=== PATIENT | male | born 1940 | race Caucasian/White ===

== ENCOUNTER 2017-04-29 12:07 | Observation (INO) | payer MEDICARE ==
[~2017-04-29] VITALS: Ht 175.3 cm; Wt 101.0 kg
[~2017-04-29 12:07] MED LIST: CEPHALEXIN500 MG PO; CLOPIDOGREL75 MG PO; FLUOXETINE20 MG PO; LO-DOSE ASA81 MG PO; METOPROL TAR25 MG PO; MULTIVITAMIN PO; PRILOSEC20 MG PO; ROBITUSSIN AC10 ML PO; SIMVASTATIN40 MG PO; TESSALON PER100 MG PO; ZPAK PO
[2017-04-29 12:53] LABS: HEMATOCRIT 43.3 % (39.0-50.0); HEMOGLOBIN 14.1 g/dl (14.0-18.0); IMMATURE GRANULOCYTES 0.5 % (0.0-1.0); MEAN CELL VOLUME 94.5 fL CALC (80.0-100.0); MEAN CORPUSCULAR HGB 30.8 pG CALC (26.0-32.0); MEAN CORPUSCULAR HGB CONC 32.6 g/L CALC (32.0-36.0); NEUT# 4.57 thou/uL (1.82-7.42); RED BLOOD COUNT 4.58 mill/uL (4.70-6.10); RED CELL DISTRI WIDTH 13.7 % (11.5-15.5)
[2017-04-29 12:54] LABS: URINE BILIRUBIN - DIPSTICK NEGATIVE (NEGATIVE); URINE BLOOD DIPSTICK NEGATIVE (NEGATIVE); URINE COLOR YELLOW; URINE GLUCOSE - DIPSTICK NEGATIVE (NEGATIVE); URINE KETONE NEGATIVE (NEGATIVE); URINE LEUK ESTERASE NEGATIVE (NEGATIVE); URINE NITRITE - DIPSTICK NEGATIVE (Negative); URINE PROTEIN - DIPSTICK TRACE mg/dL (NEG-TRACE); URINE SPECIFIC GRAVITY 1.025
[2017-04-29 12:56] LABS: URINE CLARITY HAZY
[2017-04-29 13:06] LABS: ANION GAP 17 (6-22 (CALC)); BUN 16 mg/dL (8-23); BUN/CREATININE RATIO 23 (12-20 (CALC)); CALCIUM 9.1 mg/dL (8.4-10.2); CARBON DIOXIDE 24 mmol/l (22-30); CHLORIDE 106 mmol/l (95-108); CREATININE 0.7 mg/dL (0.7-1.3); GFR > 60 ML/MIN (>=60 (CALC)); GFR FOR AFR.AMER. > 60 ML/MIN (>=60 (CALC)); GLUCOSE 109 mg/dL (82-115); POTASSIUM 4.5 mmol/l (3.5-5.1); SODIUM 142 mmol/l (137-146)
[2017-04-29] MEDS ORDERED: METFORMIN500 MG PO (13:49)
[2017-04-29] MEDS ORDERED: B121000 MCG PO (13:51)
[2017-04-29] MEDS ORDERED: PANTOPRAZOLE SO40 MG PO (13:51)
[2017-04-29 14:13] LABS: BARBITURATES NEGATIVE (NEGATIVE); COCAINE NEGATIVE (NEGATIVE); METHADONE NEGATIVE (NEGATIVE); OXCYCODONE NEGATIVE (NEGATIVE); TETRAHYDROCANNABIONOL NEGATIVE (NEGATIVE); TRICYLIC ANTIDEPRESSANTS NEGATIVE (NEGATIVE)
[2017-04-29 15:36] VITALS: BP 146/76
[2017-04-29 16:30] VITALS: BP 140/73; BP 150/70; BP 154/70
[2017-04-29 19:50] VITALS: BP 143/60
[2017-04-29 19:53] VITALS: BP 159/93
[2017-04-29 19:55] VITALS: BP 141/60
[2017-04-29 20:00] VITALS: BP 143/73
[2017-04-30 00:20] VITALS: BP 132/64
[2017-04-30 04:55] VITALS: BP 122/76
[2017-04-30 05:17] LABS: HEMATOCRIT 41.1 % (39.0-50.0); HEMOGLOBIN 13.2 g/dl (14.0-18.0); MEAN CELL VOLUME 94.7 fL CALC (80.0-100.0); MEAN CORPUSCULAR HGB 30.4 pG CALC (26.0-32.0); MEAN CORPUSCULAR HGB CONC 32.1 g/L CALC (32.0-36.0); RED BLOOD COUNT 4.34 mill/uL (4.70-6.10); RED CELL DISTRI WIDTH 13.4 % (11.5-15.5)
[2017-04-30 05:30] LABS: ANION GAP 15 (6-22 (CALC)); BUN 13 mg/dL (8-23); BUN/CREATININE RATIO 18 (12-20 (CALC)); CALCIUM 8.9 mg/dL (8.4-10.2); CARBON DIOXIDE 28 mmol/l (22-30); CHLORIDE 105 mmol/l (95-108); CREATININE 0.7 mg/dL (0.7-1.3); GFR > 60 ML/MIN (>=60 (CALC)); GFR FOR AFR.AMER. > 60 ML/MIN (>=60 (CALC)); GLUCOSE 117 mg/dL (82-115); MAGNESIUM 1.6 mg/dL (1.6-2.3); POTASSIUM 4.2 mmol/l (3.5-5.1); SODIUM 143 mmol/l (137-146)
[2017-04-30 07:30] VITALS: BP 144/67
[2017-04-30] MEDS ORDERED: METOPROL TAR25 M1 PO (10:22)
[2017-04-30 11:35] VITALS: BP 125/65
[2017-04-30 11:40] VITALS: BP 130/71
[2017-04-30 11:45] VITALS: BP 138/73
== END 2017-04-30 12:48 | disposition home or self-care (01) ==
LOC: ED 12:07 → ED-I 12:47 → ED 12:47 → ED-I 13:43 → ED 14:02 → MS2 14:03
PROVIDERS: Family Medicine; ADMIT Internal Medicine; ATTEND Internal Medicine
DX: R53.1 Weakness (principal); R00.1 Bradycardia, unspecified; E87.2 Acidosis; I10 Essential (primary) hypertension; I25.10 Atherosclerotic heart disease of native coronary artery without angina pectoris; I67.1 Cerebral aneurysm, nonruptured; F17.210 Nicotine dependence, cigarettes, uncomplicated; E11.9 Type 2 diabetes mellitus without complications; E78.5 Hyperlipidemia, unspecified; K21.9 Gastro-esophageal reflux disease without esophagitis; F32.9 Major depressive disorder, single episode, unspecified; Z79.84 Long term (current) use of oral hypoglycemic drugs; Z86.73 Personal history of transient ischemic attack (TIA), and cerebral infarction without residual deficits; Z95.1 Presence of aortocoronary bypass graft; Z95.5 Presence of coronary angioplasty implant and graft; Z87.11 Personal history of peptic ulcer disease
CPT/HCPCS: J1650

== ENCOUNTER 2018-12-26 18:58 | Emergency (ER) | payer MEDICARE ==
[~2018-12-26] VITALS: Ht 175.3 cm; Wt 101.0 kg
[~2018-12-26 18:58] MED LIST changes: +B121000 MCG PO; +METFORMIN500 MG PO; +METOPROL TAR25 M1 PO; +PANTOPRAZOLE SO40 MG PO
[2018-12-26] MEDS ORDERED: METFORMIN HCL500 M1 PO ×2 (19:19→20:00)
[2018-12-26] MEDS ORDERED: LOPRESSOR 550 MG/TAB PO ×2 (19:19→20:00)
[2018-12-26] MEDS ORDERED: PANTOPRAZOLE SO40 M1 PO ×2 (19:19→20:00)
[2018-12-26] MEDS ORDERED: FLUOXETINE HCL20 MG PO (19:19)
[2018-12-26] MEDS ORDERED: MIRTAZAPINE7.5 MG PO (19:22)
[2018-12-26] MEDS ORDERED: FLUOXETINE20 MG PO (20:00)
[2018-12-26] MEDS ORDERED: CLOPIDOGREL75 MG PO (20:00)
[2018-12-26] MEDS ORDERED: SIMVASTATIN40 MG PO (20:00)
[2018-12-26 20:02] VITALS: BP 129/72
== END 2018-12-26 20:08 | disposition home or self-care (01) ==
LOC: ED 18:58
DX: Z76.0 Encounter for issue of repeat prescription (principal); E78.00 Pure hypercholesterolemia, unspecified; E11.9 Type 2 diabetes mellitus without complications; Z79.84 Long term (current) use of oral hypoglycemic drugs

== ENCOUNTER 2019-05-29 22:43 | Observation (INO) | payer MEDICARE ==
[~2019-05-29] VITALS: Ht 175.3 cm; Wt 99.0 kg
[~2019-05-29 22:43] MED LIST changes: +FLUOXETINE HCL20 MG PO; +LOPRESSOR 550 MG/TAB PO; +METFORMIN HCL500 M1 PO; +MIRTAZAPINE7.5 MG PO; +PANTOPRAZOLE SO40 M1 PO
--- NOTE | 2019-05-29 22:47 | NUR ---
PATIENT TO ROOM 14 VIA EMS STRETCHER. PATIENT UNDRESSED INTO A GOWN, PLACED ON MONITOR AND TRIAGE COMPLETED AT BEDSIDE. PATIENT DENIES PAIN AT PRESENT.
[2019-05-29] MEDS ORDERED: METOPROL TAR25 MG PO (22:58)
[2019-05-29] MEDS ORDERED: GLIPIZIDE5 M2 PO (22:58)
--- NOTE | 2019-05-29 23:15 | NUR ---
UNABLE TO PROVIDE A URINE SPECIMAN EVEN WHEN ASSISTED TO STAND AT BEDSIDE
[2019-05-29 23:16] LABS: HEMATOCRIT 39.2 % (39.0-50.0); HEMOGLOBIN 12.5 g/dl (14.0-18.0); IMMATURE GRANULOCYTES 1.3 % (0.0-5.0); MEAN CELL VOLUME 92.9 fL CALC (80.0-100.0); MEAN CORPUSCULAR HGB 29.6 pG CALC (26.0-32.0); MEAN CORPUSCULAR HGB CONC 31.9 g/L CALC (32.0-36.0); NEUT# 5.07 thou/uL (1.82-7.42); RED BLOOD COUNT 4.22 mill/uL (4.70-6.10); RED CELL DISTRI WIDTH 13.9 % (11.5-15.5)
[2019-05-29 23:33] LABS: ALBUMIN 3.7 g/dL (3.2-5.0); ALKALINE PHOSPHATASE 100 u/l (38-126); ANION GAP 10 (6-22 (CALC)); BUN 18 mg/dL (8-23); BUN/CREATININE RATIO 19 (12-20 (CALC)); CARBON DIOXIDE 28 mmol/l (22-30); CHLORIDE 106 mmol/l (95-108); GFR > 60 ML/MIN (>=60 (CALC)); GFR FOR AFR.AMER. > 60 ML/MIN (>=60 (CALC)); SGOT/AST 47 u/l (19-48); SODIUM 140 mmol/l (137-146); TOTAL PROTEIN 6.4 g/dL (6.3-8.2)
[2019-05-29 23:38] LABS: BILIRUBIN, TOTAL 0.5 mg/dL (0.0-1.4)
[2019-05-29 23:45] LABS: MYOGLOBIN 130 ng/mL (0 - 121)
[2019-05-30] VITALS (8 sets, daily range): BP systolic 124–174; BP diastolic 55–75
--- NOTE | 2019-05-30 | NUR ---
BEDRESTING. CURLED UP AND DOZING. NO DISTRESS NOTED
--- NOTE | 2019-05-30 00:28 | NUR ---
TO MS VIA STRETCHER AT THIS TIME
--- NOTE | 2019-05-30 00:28 | NUR ---
REPORT CALLED TO
--- NOTE | 2019-05-30 02:00 | NUR ---
PATIENT ADMITTED FROM ER VIA STRETCHER WITH ER STAFF IN ATTENDANCE. PATIENT MAX ASSIST TO SLIDE FROM STRETCHER TO BED. PATIENT IS AWAKE ALERT AND ORIENTEDX3. PATIENT CAME IN FROM [facility] IN [place] VIA EMS FOR CHEST PAIN. STATES THAT HE WENT TO BED LAST NIGHT AND WOKE UP WITH SHARP CHEST PAIN GOING TO HIS RIGHT SHOULDER. WAS DIAPHORETIC AND EMS WAS CALLED. LASTED ABOUT 1 HOUR AND WAS OVER BY THE TIME EMS ARRIVED. STATES JUST SLIGHT ACHE TO LEFT CHEST AT THIS TIME-3/10. SKIN IS WARM AND DRY. TELE MONITOR IN PLACE AND READING SR-60'S. LUNGS ARE DIMINISHED BUT CLEAR. SOB ON EXHERSION. ABD SOFT WITH ACTIVE BS-LAST BM WAS MONDAY. INSTRUCTED PATIENT THAT WE DO NEED URINE SPEC WHEN HE IS ABLE TO VOID. SALINE LOCK TO RAC-FLUSHES FREELY WITH GOOD BLOOD RETURN. PATIENT ORIENTED TO ROOM AND SURROUNDINGS. PROVIDED WITH H20 TO DRINK. SAFETY PRECAUTIONS REINFORCED. CALL LIGHT IN REACH. WILL CONT TO MONITOR. PO DISCUSSED
--- NOTE | 2019-05-30 04:40 | NUR ---
PATIENT APPEARS SLEEPING AT THIS TIME ON HIS RIGHT SIDE. RESP ARE EVEN AND UNLABORED. TELE MONITOR IN PLACE. CALL LIGHT IN REACH. WILL CONT TO MONITOR.
[2019-05-30 06:35] LABS: URINE BILIRUBIN - DIPSTICK NEGATIVE (NEGATIVE); URINE BLOOD DIPSTICK NEGATIVE (NEGATIVE); URINE COLOR YELLOW; URINE GLUCOSE - DIPSTICK NEGATIVE (NEGATIVE); URINE KETONE NEGATIVE (NEGATIVE); URINE LEUK ESTERASE NEGATIVE (NEGATIVE); URINE NITRITE - DIPSTICK NEGATIVE (Negative); URINE PROTEIN - DIPSTICK NEGATIVE (NEG-TRACE); URINE SPECIFIC GRAVITY 1.025
--- NOTE | 2019-05-30 07:29 | NUR ---
PT A/O X3. RESP EVEN AND UNLABORED. LUNGS DIMINISHED. TELE IN PLACE. BOWEL SOUNDS ACTIVE X4. STRONG RADIAL AND PEDAL PULSES. #20 RAC EMS IV SL. FLUSHED AND PATENT. SITE APPEARS HEALTHY. LLE MILD REDNESS/WARMTH AND TRACE OF EDEMA. PT STATES SWELLING HAS BEEN GOING ON FOR ABOUT A WEEK NOW. NO C/O PAIN OR NEEDS. POC DISCUSSED. SAFETY PRECAUTIONS IN PLACE. CALL LIGHT IN REACH. WILL CONTINUE TO MONITOR.
--- NOTE | 2019-05-30 07:34 | NUR ---
PT REPORT RECIEVED FROM ASHLEY FERNANDO. PT RESTING. NO S/S OF DISTRESS. CALL LIGHT IN REACH. WILL CONTINUE TO MONITOR.
[2019-05-30] MEDS ORDERED: FLUOXETINE40 MG PO (08:50)
[2019-05-30 09:50] LABS: CHOLESTEROL HDL RATIO 6.7 (<4.4 (CALC))
--- NOTE | 2019-05-30 11:33 | NUR ---
PT RESTING IN BED. NO C/O PAIN OR NEEDS. CALL LIGHT IN REACH. WILL CONTINUE TO MONITOR.
--- NOTE | 2019-05-30 15:52 | NUR ---
PT LYING IN BED. NO C/O PAIN OR NEEDS. CALL LIGHT IN REACH. WILL CONTINUE TO MONITOR.
--- NOTE | 2019-05-30 19:05 | NUR ---
REPORT FROM RHIANNON HEAD. PT RESTING IN BED. ALERT AND ORIENTED. NO APPARENT DISTRESS NOTED. PT DENIES ANY PAIN OR DISCOMFORT. IV SITE APPEARS HEALTHY. FRINGING MACHINE OPERATOR IN PLACE. DISCUSSED POC. PT VERBALIZED UNDERSTANDING. CALL LIGHT WITHIN REACH. WILL CONTINUE TO MONITOR.
--- NOTE | 2019-05-30 23:48 | NUR ---
PT RESTING IN BED. ALERT AND ORIENTED. PT DENIES ANY PAIN OR DISCOMFORT AT THIS TIME. NO CURRENT WANTS OR NEEDS. NO APPARENT DISTRESS NOTED. CALL LIGHT WITHIN REACH. WILL CONTINUE TO MONITOR.
--- NOTE | 2019-05-31 03:45 | NUR ---
PT RESTING IN BED WITH EYES CLOSED. NO APPARENT DISTRESS NOTED. PT DENIES ANY PAIN OR DISCOMFORT. REFUSING IV SITE CHANGE AT THIS TIME, EDUCATION PROVIDED. CALL LIGHT WITHIN REACH. WILL CONTINUE TO MONITOR.
[2019-05-31 04:05] VITALS: BP 141/71
[2019-05-31 07:17] VITALS: BP 147/59
--- NOTE | 2019-05-31 07:17 | NUR ---
PT REPORT RECIEVED FROM SONIDO CAICEDO. PT RESTING. NO S/S OF DISTRESS. CALL LIGHT IN REACH. WILL CONTINUE TO MONITOR.
--- NOTE | 2019-05-31 07:17 | NUR ---
PT A/O X3. RESP EVEN AND UNLABORED. LUNG SOUNDS CLEAR. TELE IN PLACE. BOWEL SOUNDS ACTIVE X4. STRONG RADIAL AND PEDAL PULSES. #20 RAC EMS IV SL. FLUSHED AND PATENT. SITE APPEARS HEALTHY. LLE TRACE OF EDEMA, MILD REDNESS. SKIN INTACT. PT DENIES ANY PAIN OR NEEDS. POC DISCUSSED. SAFETY PRECAUTIONS IN PLACE. CALL LIGHT IN REACH. WILL CONTINUE TO MONITOR.
[2019-05-31 11:53] VITALS: BP 133/56
[2019-05-31] MEDS ORDERED: COZAAR50 MG PO (11:58)
[2019-05-31] MEDS ORDERED: TRIAMCINOLON0.11 EX (12:04)
--- NOTE | 2019-05-31 12:44 | NUR ---
D/C INSTRUCTIONS DISCUSSED W/ PT. PT STATES UNDERSTANDING. IV REMOVED; CATHETER INTACT. PT DRESSED W/ ASSISTANCE OF MICROWAVE SUPERVISOR. AWAITING RIDE TO [facility].
--- NOTE | 2019-05-31 13:35 | NUR ---
Discharge instructions given. Patient verbalizes understanding of same. Discharged in stable condition via Wheelchair to [facility] with *Other. All belongings sent with pt.
== END 2019-05-31 13:28 ==
LOC: ED 22:43 → ED-I 23:49 → ED 05-30 00:07 → MS2 05-30 00:08
PROVIDERS: Emergency Medicine; Nurse Practitioner Family; ADMIT Internal Medicine; ATTEND Internal Medicine
DX: R07.2 Precordial pain (principal); E11.9 Type 2 diabetes mellitus without complications; I10 Essential (primary) hypertension; E78.5 Hyperlipidemia, unspecified; I25.10 Atherosclerotic heart disease of native coronary artery without angina pectoris; K21.9 Gastro-esophageal reflux disease without esophagitis; R21 Rash and other nonspecific skin eruption; F60.3 Borderline personality disorder; F32.9 Major depressive disorder, single episode, unspecified; F17.200 Nicotine dependence, unspecified, uncomplicated; Z86.79 Personal history of other diseases of the circulatory system; Z95.1 Presence of aortocoronary bypass graft; Z86.73 Personal history of transient ischemic attack (TIA), and cerebral infarction without residual deficits; Z95.5 Presence of coronary angioplasty implant and graft; Z79.84 Long term (current) use of oral hypoglycemic drugs; Z79.02 Long term (current) use of antithrombotics/antiplatelets

== ENCOUNTER 2019-07-14 05:02 | Inpatient (IN) | payer MEDICARE ==
[2019-07-14] VITALS (8 sets, daily range): BP systolic 153–188; BP diastolic 57–74
[~2019-07-14] VITALS: Ht 175.3 cm; Wt 101.6 kg
[~2019-07-14 05:02] MED LIST changes: +COZAAR50 MG PO; +FLUOXETINE40 MG PO; +GLIPIZIDE5 M2 PO; +TRIAMCINOLON0.11 EX
--- NOTE | 2019-07-14 05:17 | NUR ---
PT. TO ROOM 9 VIA W/C WITH C/O BEING AWOKEN THIS AM WITH CP. PT. STATES HIS CP IS COMPLETLY RESOLVED OF THIS TIME. SKIN WARM AND DRY TO TOUCH, COLOR WNL, RESP. EVEN AND UNLABORED.
--- NOTE | 2019-07-14 05:57 | NUR ---
PO ASA AND NITROPASTE GIVEN PER MD ORDER.
[2019-07-14 06:21] LABS: HEMATOCRIT 39.4 % (39.0-50.0); HEMOGLOBIN 13.1 g/dl (14.0-18.0); IMMATURE GRANULOCYTES 0.5 % (0.0-5.0); MEAN CELL VOLUME 92.5 fL CALC (80.0-100.0); MEAN CORPUSCULAR HGB 30.8 pG CALC (26.0-32.0); MEAN CORPUSCULAR HGB CONC 33.2 g/L CALC (32.0-36.0); NEUT# 5.89 thou/uL (1.82-7.42); RED BLOOD COUNT 4.26 mill/uL (4.70-6.10); RED CELL DISTRI WIDTH 13.5 % (11.5-15.5)
--- NOTE | 2019-07-14 06:50 | NUR ---
REPORT RECEIVED FROM ROMI RAMIREZ. PT APPEARS TO BE ALERT/ORIENTED AT THIS TIME, LOOKING ON PHONE. DENIES ANY CHEST PAIN AT THIS TIME. ABLE TO ANSWER ALL QUESTIONS APPROPRIATELY. VSS. LAB HERE FOR REDRAW OF HEMOLYSED CHEMISTRY.
--- NOTE | 2019-07-14 06:51 | NUR ---
REPORT TO DIMAS RAMIREZ.
[2019-07-14] MEDS ORDERED: NORVASC5 M1 PO (06:55)
[2019-07-14] MEDS ORDERED: TRIAMCINOLON0.11 EX (06:56)
[2019-07-14 07:11] LABS: ALBUMIN 3.9 g/dL (3.2-5.0); ALKALINE PHOSPHATASE 68 u/l (38-126); AMYLASE 551 u/l (30-110); ANION GAP 11 (6-22 (CALC)); BILIRUBIN, TOTAL 0.5 mg/dL (0.0-1.4); BUN 17 mg/dL (8-23); BUN/CREATININE RATIO 25 (12-20 (CALC)); CARBON DIOXIDE 27 mmol/l (22-30); CHLORIDE 106 mmol/l (95-108); CREATININE 0.7 mg/dL (0.7-1.3); GFR > 60 ML/MIN (>=60 (CALC)); GFR FOR AFR.AMER. > 60 ML/MIN (>=60 (CALC)); POTASSIUM 4.1 mmol/l (3.5-5.1); SGOT/AST 31 u/l (19-48); SODIUM 140 mmol/l (137-146); TOTAL PROTEIN 6.7 g/dL (6.3-8.2)
[2019-07-14 07:19] LABS: LIPASE 4476 u/l (23-300)
[2019-07-14 07:23] LABS: MYOGLOBIN 59 ng/mL (0 - 121)
--- NOTE | 2019-07-14 07:45 | NUR ---
AFTER LIPASE RESULTS DR HAS DECIDED TO OBTAIN A CT SCAN, PT MADE AWARE
--- NOTE | 2019-07-14 09:35 | NUR ---
AFTER CT SCAN DR RICHTER EXPLAINING RESULTS AND WOULD LIKE TO HAVE ULTRASOUND DONE TO CONFIRM, PT VOICES UNDERSTANDING. DENIES ANY PAIN AT THIS TIME PAIN LEVEL REMAINS A 0
--- NOTE | 2019-07-14 11:15 | NUR ---
IV ABT INFUSING. SITE HEALTHY. PT DENIES PAIN. AWARE OF PENDING ADMIT.
--- NOTE | 2019-07-14 11:20 | NUR ---
REPORT REC FROM NORAH RAMIREZ.
--- NOTE | 2019-07-14 11:22 | NUR ---
REPORT CALLED TO KELLY, NURSE, ON [facility].
--- NOTE | 2019-07-14 11:25 | NUR ---
I SPOKE WITH ASHLEY EMERSON FROM THE OPERATING ROOM. I GAVE HER THE INFORMATION FOR THE CONSULT SO THE PHYSICIAN CAN SEE THE PT BEFORE HE LEAVES FOR THE DAY. I CALLED @1126 AM AND THE CONSULT IS FOR ACUTE CHOLECYSTITIS.
--- NOTE | 2019-07-14 11:25 | NUR ---
REPORT CALLED TO KELLY, NURSE, ON [facility].
--- NOTE | 2019-07-14 11:45 | NUR ---
DR RODRIGEZ IN TO SEE PT AT BEDSIDE AND DISCUSS POC.
--- NOTE | 2019-07-14 11:57 | NUR ---
PT TO [facility] VIA . IV SITE HEALTHY. VSS.
--- NOTE | 2019-07-14 12:20 | NUR ---
PT ARRIVED FROM ED VIA WC WITH NORAH RAMIREZ. OR CONSENT OBTAINED. PT IN STABLE CONDITION. OR NURSE ARRIVED AND TOOK PT DOWN TO THE OR VIA WC.
[2019-07-14 12:57] LABS: URINE BILIRUBIN - DIPSTICK NEGATIVE (NEGATIVE); URINE BLOOD DIPSTICK NEGATIVE (NEGATIVE); URINE COLOR YELLOW; URINE GLUCOSE - DIPSTICK NEGATIVE (NEGATIVE); URINE KETONE NEGATIVE (NEGATIVE); URINE LEUK ESTERASE NEGATIVE (NEGATIVE); URINE NITRITE - DIPSTICK NEGATIVE (Negative); URINE PROTEIN - DIPSTICK NEGATIVE (NEG-TRACE); URINE SPECIFIC GRAVITY <=1.005
--- NOTE | 2019-07-14 15:47 | NUR ---
REC CALL FROM ROMY CENTRALIZED TRAFFIC CONTROL OPERATOR , PT TO BE TRANSFERRED BACK INTO THE ROOM IN 10 MINS.
--- NOTE | 2019-07-14 15:58 | NUR ---
PT ARRIVED TO MS2 VIA STRETCHER ACCOMPANIED BY OR NURSE. PT ALERT, TRANSFERRED OVER TO BED X4. NOTED GRIMICING TO FACE, C/O PAIN 01/07. ORIENTED PT TO ROOM AND CALL LIGHT. DISCUSSED POC. OR NURSE REMOVED 60CC OF BLOODY DRAINAGE FROM ADARSH DRAIN, OR NURSE TO DOCUMENT OUTPUT.PT MEDICATED FOR PAIN AND EDUCATED ON DILAUDID AND ZOFRAN. IVF CONTINUED TO EMS SITE TO [facility]. PT HAS A DRESSING WITH ADARSH DRAIN X1 TO ABD. DRESSING CDI, SCD'S IN PLACE. PT 02 90%RA. O2 2L NC PLACED AND DISCUSSED IS. TOTAL VOLUME 750ML SET GOAL FOR 1000ML. PT TOLERATING PO FLUIDS.ASSESSMENT COMPLETED, CALL LIGHT IN REACH,CONTINUE TO MONITOR.
--- NOTE | 2019-07-14 19:32 | NUR ---
PT. RESTING IN BED SLIGHTKY ANXIOUS AND C/O ABDOMINAL PAIN AND GAS PAIN RADIATING 04/09, MEDICATED WITH ORDERED PRN DILAUDID; RELAXATION TECHNIQUES IMPLEMENTED WELL. ENCOURAGED PO INTAKE; VSS. O2 INFUSING PER NC PER ORDER. DRESSING TO MID ABDOMEN CDI WITH SMALL GAUZE DRESSING WITH TEGADERM RIGHT ABOVE IT TO RUQ;CDI. ADARSH TO RIGHT MIDDLE ABDOMEN AND EMPTIED OF 20MLS OF SEROUS SANGINOUS DRAINAGE; WILL CONTINUE TO MONITOR. ENCOURGAED USE OF I/S WELL DEEP BREATHING. SCD'S ARE IN PLACE TO BLE. IV SITE PATENT AND INFUSING ORDERED IVF WELL. ENCOURAGED TO CALL FOR ANY NEEDS. CALL LIGHT IS IN REACH.
--- NOTE | 2019-07-14 20:12 | NUR ---
SCHEDULED LOPRESSOR GIVEN. PT. ASSISTED TO TURN ON HIS SIDE AND HE IS ATTEMPTING TO URINATE. WILL RE-EVALUATE SHORTLY.
--- NOTE | 2019-07-14 23:12 | NUR ---
ATTEMPTED TO DO A NEW IV SITE DUE TO PT. HAVING EMS SITE AND UNSUCCESSFUL AT THIS TIME. THIS WELDING SYSTEMS AND EQUIPMENT REPAIRER ATTEMPTED 2 TIMES. IV SITE IS GOOD UNTIL MIDNIGHT 07/16/19. WILL PASS ON TO NEXT SHIFT. EMS SITE APPEARS HEALTHY AND ORDERED IVF INFUSING WELL. C/O ABDOMINAL PAIN AND MEDICATED WITH ORDERED PRN DILAUDID PER PT'S REQUEST AND PAIN; WILL REASSESS. ADARSH DRAIN EMTPIED OF 90MLS OF BLOODY DRAINAGE. URINAL EMPTIED OF 150MLS OF CLEAR YELLOW URINE. INCENTIVE SPIROMETER ENCOURAGED. CALL LIGHT IS IN REACH.
[2019-07-15 04:16] VITALS: BP 156/67
--- NOTE | 2019-07-15 04:16 | NUR ---
PT. ASSISTED TO THE BATHROOM TO ATTEMPT TO HAVE BM; NO BM AT THIS TIME, BUT DID PASS FLATUS AND VOIDED IN TOILET.LINENS CHANGED. PT. DECLINES WANTING TO SIT UP IN CHAIR AT THIS TIME AND WENT BACK INTO BED. VS OBTAINED AND SPO2 90% ON RA, RE-APPLIED O2 AND TITRATED DOWN TO 1LITER/MIN AND SPO2 UP TO 92%. ADARSH DRAIN INTACT AND EMPTIED OF 50MLS OF BLOODY DRAINAGE. DRESSING WITH SMALL SLIGHT SPOT NOTED TO DRESSING NOT THROUGH DRESSING AND OUTLINED WITH MARKER TO MONITOR. PT. DENIES ANY NEEDS FOR PAIN MEDICATION AT THIS TIME. INCENTIVE SPIROMETER WITHIN REACH AND ENCOURAGED TO USE. ICE CHIPS AND FRESH WATER PROVIDED. LOTION APPLIED TO LEGS FOR C/O DRYNESS AND THEN SCD'S RE-APPLIED. CALL LIGHT IS IN REACH. WILL CONTINUE TO MOTNIOR.
[2019-07-15 05:01] LABS: ALBUMIN 3.7 g/dL (3.2-5.0); ALKALINE PHOSPHATASE 65 u/l (38-126); ANION GAP 12 (6-22 (CALC)); BILIRUBIN, TOTAL 0.7 mg/dL (0.0-1.4); BUN 10 mg/dL (8-23); BUN/CREATININE RATIO 16 (12-20 (CALC)); CARBON DIOXIDE 25 mmol/l (22-30); CHLORIDE 106 mmol/l (95-108); CREATININE 0.6 mg/dL (0.7-1.3); GFR > 60 ML/MIN (>=60 (CALC)); GFR FOR AFR.AMER. > 60 ML/MIN (>=60 (CALC)); SGOT/AST 70 u/l (19-48); SODIUM 139 mmol/l (137-146); TOTAL PROTEIN 6.5 g/dL (6.3-8.2)
[2019-07-15 08:10] VITALS: BP 159/78
--- NOTE | 2019-07-15 08:10 | NUR ---
ASSESSMENT IS COMPLETED: IV SITE IS FREE FROM REDNESS OR EDEMA. HR IS REG, PULSES ARE STRONG X4, ABD IS SOFT WITH ACTIVE BS. BREATH SOUNDS ARE CLEAR, BILATERALLY, DRESSING ON ABD IS CDI. ADARSH DRAIN HAS SOME BLOODY DRAINAGE NOTED. PT ASKING FOR A KRUGER DUE TO URINATING A LOT. SCD'S IN PLACE. CONTINUE TO OSBERVE AND MONITOR.
--- NOTE | 2019-07-15 10:41 | NUR ---
SWALLOW EVAL COMPLETGED: PER STAFF, PT IS STILL INFLAMED FROM THE SURGERY YESTERDAY.
--- NOTE | 2019-07-15 12:00 | NUR ---
PT IS RELXING ON THE SIDE OF THE BED WITH NO DISTRESS NOTED. IV SITE IS FREE FROM REDNESS OR EDEMA.
[2019-07-15 12:59] LABS: MAGNESIUM 1.5 mg/dL (1.6-2.3)
[2019-07-15 15:00] VITALS: BP 143/63
--- NOTE | 2019-07-15 16:00 | NUR ---
PT IS RELXING IN BED WITH NO DISTRESS NTOED. IV SITE IS FREE FROM REDNESS OR EDEMA.
[2019-07-15 19:45] VITALS: BP 105/47
[2019-07-15 20:28] VITALS: BP 115/58
--- NOTE | 2019-07-15 20:28 | NUR ---
PT. RESTING IN BED ASLEEP AND AWAKENED FOR ASSESSMENT AND COMPLETED AT THIS TIME. DRESSING TO ABDOMEN IS INTACT AND OUTLINE REMAINS THE SAME. ADARSH INTACT AND DRAINING BLOODY DRAINAGE NOTED. BS ACTIVE AND DENIES HAVING A BM TODAY. ENCOURAGE PO INTAKE. IV SITE PATENT AND SL, FLUSHES WELL, EMS SITE AND SPOKE WITH MARIELENA MAYORGA EARLIER THIS SHIFT AND RECEIVED ORDER OKAY TO LEAVE EMS SITE IN, SEE ORDER IN CHART. ENCOURAGED USE OF INCENTIVE SPIROMETER. INSTRUCTED TO CALL FOR ANY NEEDS. CALL LIGHT IS IN REACH.
--- NOTE | 2019-07-15 22:28 | NUR ---
PT. ASSISTED OOB INTO CHAIR AND ASSISTED TO WASH UP BY HALAL MEAT PACKER. LINENS CHANGED. ADARSH DRAIN EMPTIED OF 20MLS OF BLOODY DRAINAGE. DRESSING INTACT TO ABDOMEN. ASSISTED BACK INTO BED AND VOICES NO CONCERNS. SCD'S REAPPLIED TO BLE. PO FLUIDS OFFERED AND ENCOURAGED. CALL LIGHT IS IN REACH. WILL CONTINUE TO MONITOR.
--- NOTE | 2019-07-16 00:02 | NUR ---
PT. RESTING IN BED ON LEFT SIDE WITH NO DISTRESS NOTED; DENIES NEEDS/PAIN. IV SITE PATENT AND ORDERED MILLIE CONLEY. URINAL WITHIN REACH. TEMP WNL. ENCOURAGED TO CALL FOR ANY NEEDS. CALL LIGHT IS IN REACH.
--- NOTE | 2019-07-16 02:03 | NUR ---
PT. RESTING IN BED ON LEFT SIDE WITH NO DISTRESS NOTED. VOICES NO CONCERNS. DENIES NEEDS/PAIN. ENCOURAGED TO CALL FOR ANY NEEDS. URINAL EMPTIED AND REPLACED AT BEDSIDE. CALL LIGHT IS IN REACH. WILL CONTINUE TO MONITOR.
[2019-07-16 03:18] VITALS: BP 132/63
--- NOTE | 2019-07-16 03:18 | NUR ---
PT. RESTING IN BED WITH NO DISTRESS NOTED. DENIES NEEDS/PAIN. ADARSH DRAIN EMPTIED OF 10MLS OF BLOODY DRAINAGE. VSS. DRESSING REMAINS INTACT TO ABDOMEN. INSTRUCTED TO CALL FOR ANY NEEDS. CALL LIGHT IS IN REACH.
--- NOTE | 2019-07-16 05:29 | NUR ---
PT. RESTING IN BED WITH NO DISTRESS NOTED. FRESH WATER PROVIDED AND ENCOURAGED TO DRINK. URINAL EMPTIED OF 250MLS OF LIGHT I[place] URINE. CHECKED FOR INCONTINENCE OF URINE OR SPILLAGE OF URINAL AND NONE NOTED; PT. IS DRY. DRESSING IS CDI TO ABDOMEN AND ADARSH INTACT.
[2019-07-16 07:45] VITALS: BP 133/48
--- NOTE | 2019-07-16 07:45 | NUR ---
ASSESSMENT IS COMPLETED: IV SITE IS FREE FROM REDNESS OR EDEMA. HR IS REG,PULSES ARE STRONG X4, ABD IS SOFT WITH ACTIVE BS. BREATH SOUNDS ARE CLEAR BILATERALLY, DRESSING IS CDI. ADARSH HAS MINIMAL AMOUNT OF DRAINAGE NOTED. CONTINUE TO OSBERVE AND MONITOR.
[2019-07-16] MEDS ORDERED: AMOX/K CLAV875 M1 PO (10:24)
[2019-07-16] MEDS ORDERED: PERCOCET 5/325M1 TAB PO (10:26)
--- NOTE | 2019-07-16 10:43 | NUR ---
REMOVED DRESSING AND ADARSH DRAIN PER AND DR. RODRIGEZ REQUEST. WILL BE ABLE TO BE DISCHARGED AFTER BM. PT VERBALIZED UNDERSTANDING.
--- NOTE | 2019-07-16 12:15 | NUR ---
PT IS RELAXING IN BED , PASSING FLATUS, NO BM AT THIS TIME. IV SITE IS FREE FROM REDNESS OR EDEMA. CONTINUE TO OBSERVE AND MONITOR.
--- NOTE | 2019-07-16 13:51 | NUR ---
[facility] STAFF CALLED TO INQUIRE ABOUT THE PLANS FOR THE PT. INFORMED WHEN PT IS ABLE TO HAVE A BM, THEN CAN BE DISCHARGED. WAS INFORMED THAT PT CALLED HAVEN KOENIG AND STATES" THIS IS AN EMERGENCY". WHEN CONFRONTING THE PT WAS TOLD HIS PHONE IS CALLING [employer]. FOR EMERGENCY. INFORMED THE STAFF WHAT PT HAD INFORMED.
[2019-07-16 15:13] VITALS: BP 141/63
--- NOTE | 2019-07-16 16:15 | NUR ---
PER RHIANNON MUHAMMAD ABLE TO LEAVE THE EMS IN. PT WILL BE AVAILABLE FOR DISCHARGE TOMORROW. PT NEEDS TO HAVE A BM , WAS ALREADY GIVEN MOM AND MIRALAX.
[2019-07-16 19:05] VITALS: BP 122/57
--- NOTE | 2019-07-16 21:29 | NUR ---
PT MEDICATED ORDERS PROVIDE AND ASSESSMENT COMPLETED AT THIS TIME. NO S/O DISTRESS NOTED. PT DENIES ANY NEEDS AT THIS TIME. CALL LIGHT IS W/IN REACH AND PT ENCOURAGED TO CALL NEEDS ARISE.
--- NOTE | 2019-07-17 00:21 | NUR ---
PT MEDICATED W/IV ANTIBIOTIC THERAPY. NO S/O DISTRESS NOTED, PT WAS SLEEPING, BUT AWOKE TO MY ENTERING ROOM. DENIES ANY OTHER NEEDS AT THIS TIME. CALL LIGHT W/IN REACH.
[2019-07-17 04:25] VITALS: BP 140/57
--- NOTE | 2019-07-17 04:57 | NUR ---
PT MEDICATED W/IV ANTIBIOTIC THERAPY. NO S/O DISTRESS NOTED. DENIES ANY NEEDS AT THIS TIME. CALL LIGHT W/IN REACH
[2019-07-17 07:50] VITALS: BP 119/46
--- NOTE | 2019-07-17 08:00 | NUR ---
PT SEEN AWAKE, ALERT, APPROPRIATE WITH INTERACTIONS. PT WITH SLIGHT SPEECH DELAY. ABDOMEN SOFT, NONTENDER, HAS HAD BM TODAY. NO REPORT OF PAIN, NO EVIDENCE OF DISTRESS.
[2019-07-17 08:39] VITALS: BP 119/46
--- NOTE | 2019-07-17 09:39 | NUR ---
PT WAS SEEN FOR [facility]. HE WAS INDEP ON BED MOB AND TRANSFERS; STABLE ON AMB WITH RW AND WAS ABLE TO AMB IN THE HALLWAY AT LEAST 70 FT X 2. PT STATES HE HAS BEEN DOING THE EXERCISES TAUGHT BY THERAPIST SUCH STS AND STANDING SUPPORTED HEEL RAISES. NO INSTABILITY NOTED. [facility]: 18 POINTS PT WILL BEENFIT FROM HOME HEALTH PHYS THERAPY IN THE SENIOR CARE SETTING.
--- NOTE | 2019-07-17 14:00 | NUR ---
PT HAS BEEN DISCHARGED TO HOME. HAVEN KOENIG CONTACTED, WILL SEND SOMEONE CARRILLO. PT REMAINS BEFORE, NO PAIN, NO DISTRESS.
== END 2019-07-17 14:40 | disposition home or self-care (01) | DRG 417 ==
LOC: ED 05:02 → ED-I 05:44 → ED 10:41 → MS2 10:51
PROVIDERS: Emergency Medicine; Nurse Practitioner Family; Surgery; ADMIT Internal Medicine; ATTEND Internal Medicine
PROC: 0FT44ZZ Resection of Gallbladder, Percutaneous Endoscopic Approach (ICD-10-PCS; principal; 2019-07-14)
PROC: 0WQF0ZZ Repair Abdominal Wall, Open Approach (ICD-10-PCS; 2019-07-14)
PROC: 0FC84ZZ Extirpation of Matter from Cystic Duct, Percutaneous Endoscopic Approach (ICD-10-PCS; 2019-07-14)
PROC: BF001ZZ Plain Radiography of Bile Ducts using Low Osmolar Contrast (ICD-10-PCS; 2019-07-14)
PROC: 3E02340 Introduction of Influenza Vaccine into Muscle, Percutaneous Approach (ICD-10-PCS; 2019-07-16)
DX: K80.62 Calculus of gallbladder and bile duct with acute cholecystitis without obstruction (principal); K85.90 Acute pancreatitis without necrosis or infection, unspecified; K42.0 Umbilical hernia with obstruction, without gangrene; I10 Essential (primary) hypertension; E11.9 Type 2 diabetes mellitus without complications; J44.9 Chronic obstructive pulmonary disease, unspecified; I25.10 Atherosclerotic heart disease of native coronary artery without angina pectoris; K21.9 Gastro-esophageal reflux disease without esophagitis; E78.5 Hyperlipidemia, unspecified; F17.200 Nicotine dependence, unspecified, uncomplicated; Z95.1 Presence of aortocoronary bypass graft; Z86.73 Personal history of transient ischemic attack (TIA), and cerebral infarction without residual deficits; Z79.84 Long term (current) use of oral hypoglycemic drugs; Z95.5 Presence of coronary angioplasty implant and graft; Z79.02 Long term (current) use of antithrombotics/antiplatelets; Z23 Encounter for immunization; Z86.79 Personal history of other diseases of the circulatory system
CPT/HCPCS: J0131; J1610; Q9967; S0164

== ENCOUNTER 2019-07-30 | Emergency (ER) | payer MEDICARE ==
[~2019-07-30] MED LIST changes: +AMOX/K CLAV875 M1 PO; +NORVASC5 M1 PO; +PERCOCET 5/325M1 TAB PO
[2019-07-30] MEDS ORDERED: IBUPROFEN600 MG PO (10:42)
== END 2019-07-30 10:40 | disposition home or self-care (01) ==
DX: Z48.01 Encounter for change or removal of surgical wound dressing (principal); I10 Essential (primary) hypertension; E11.9 Type 2 diabetes mellitus without complications; Z95.1 Presence of aortocoronary bypass graft; Z86.73 Personal history of transient ischemic attack (TIA), and cerebral infarction without residual deficits; Z90.49 Acquired absence of other specified parts of digestive tract

== ENCOUNTER 2022-06-14 10:06 | Emergency (ER) | payer MEDICARE ==
[~2022-06-14] VITALS: Ht 175.3 cm; Wt 77.5 kg
[~2022-06-14 10:06] MED LIST changes: +IBUPROFEN600 MG PO
[2022-06-14 10:20] VITALS: BP 159/66
[2022-06-14 10:54] VITALS: BP 159/66
== END 2022-06-14 11:00 | disposition home or self-care (01) ==
LOC: ED 10:06
DX: L72.3 Sebaceous cyst (principal); I10 Essential (primary) hypertension; E11.9 Type 2 diabetes mellitus without complications; E78.00 Pure hypercholesterolemia, unspecified; F41.9 Anxiety disorder, unspecified; K21.9 Gastro-esophageal reflux disease without esophagitis; Z95.1 Presence of aortocoronary bypass graft; Z86.73 Personal history of transient ischemic attack (TIA), and cerebral infarction without residual deficits